=== PATIENT | female | born 1970 | race Caucasian/White ===

== ENCOUNTER 2022-04-19 23:02 | Inpatient (IN) | payer BC ==
[2022-04-19] MEDS ORDERED: CEFAZOLIN 2 GM VIAL ONE (23:28)
[2022-04-19 23:34] LABS: #Basophils 0.1 thou/uL (0.0-0.2); #Eosinphils 0.4 thou/uL (0.0-0.7); #Lymphocytes 3.8 thou/uL (1.20-3.40); #Monocytes 0.7 thou/uL (0.11-0.59); #Neutrophils 3.8 thou/uL (1.40-6.50); %Basophils 0.9 % (0.0-1.0); %Eosinophils 4.7 % (0.0-10.0); %Lymphocytes 43.8 % (21.0-51.0); %Monocytes 7.6 % (0.0-10.0); %Neutrophils 42.9 % (42.0-75.0); Hemoglobin 12.2 g/dL (12.0-16.0); Mean Corpuscular HGB CONC 33.3 g/dL (32.0-36.0); Mean Corpuscular Hemoglobin 33.2 pg (27.0-31.0); Mean Corpuscular Volume 99.9 fl (78.0-98.0); Mean Platelet Volume 6.8 fL (7.4-10.4); Platelet Count 327 10x3/uL (130-400); RBC Distribution Width 11.4 % (11.5-14.5); Red Blood Cell (RBC) Count 3.69 mill/uL (4.20-5.40); White Blood Cell (WBC) Count 8.8 10x3/uL (4.8-10.8)
[2022-04-19 23:56] LABS: ALT (SGPT) 13 U/L (8-55); AST (SGOT) 17 U/L (5-34); Albumin 4.1 g/dL (3.5-5.0); Alkaline Phosphatase 25 U/L (40-110); Anion Gap 15 mmol/L (10-20); BUN (Urea Nitrogen) 13 mg/dL (9.8-20.1); Bilirubin, Total 0.2 mg/dL (0.2-1.2); Calc. Creatinine Clearance 0 mL/min (70-130); Calcium 8.3 mg/dL (7.8-10.44); Carbon Dioxide 20 mmol/L (22-29); Chloride 108 mmol/L (98-107); Estimated GFR 105; Globulin 2.6 g/dL (2.4-3.5); Glucose 95 mg/dL (70-105); Magnesium 2.3 mg/dL (1.6-2.6); Potassium 3.7 mmol/L (3.5-5.1); Protein, Total 6.7 g/dL (6.0-8.3); Sodium 139 mmol/L (136-145)
[2022-04-20] MEDS ORDERED: Lidocaine 1% PF 5 ML VIAL ONE (00:26)
[2022-04-20] MEDS ORDERED: FENTANYL 50 MCG/ML 1 ML VIAL ONE ×2 (00:33→01:28)
[2022-04-20] MEDS ORDERED: Ondansetron PF 4 MG/2 ML Vial IVP PRN (00:37)
[2022-04-20] MEDS ORDERED: Morphine 4 MG/ML VIAL SLOW IVP PRN (00:37)
[2022-04-20] MEDS ORDERED: hydrALAZINE 20 MG/ML VIAL SLOW IVP PRN (00:37)
[2022-04-20] MEDS ORDERED: traMADol HCl 50 MG TAB PO PRN (00:37)
[2022-04-20] MEDS ORDERED: TETANUS, DIPHTHERIA TOX,ADULT (TDVAX) 0.5 ML VIAL IM ONE (00:37)
[2022-04-20] MEDS ORDERED: Rib Fracture Protocol IV SCH (00:45)
[2022-04-20 01:18] LABS: Acetaminophen Less than 10.0 mcg/mL (10.0-30.0); Alcohol 275 mg/dL (Less than 10); Salicylate Less than 8.0 mg/dL (15.0-30.0)
[2022-04-20] MEDS ORDERED: Boostrix 0.5 ML (Tdap) VIAL (>/=7 yrs of age) ONE (01:35)
[2022-04-20] MEDS ORDERED: Multivitamins, Adult 10 ML, Thiamine HCl 100 MG, Folic Acid 1 MG in Dextrose 5 %-0.45 %... IV SCH (02:00)
[2022-04-20 03:22] VITALS: BMI 20.9
[2022-04-20] MEDS: traMADol HCl 50 MG TAB PO PRN ×2 (04:20→21:35)
[2022-04-20 04:33] LABS: SARS-CoV-2 NAA Rapid Test Not Detected (NotDetected)
[2022-04-20 04:33] LABS: #Monocytes 0.4 thou/uL (0.11-0.59); #Neutrophils 6.5 thou/uL (1.40-6.50); %Basophils 0.2 % (0.0-1.0); %Eosinophils 0.5 % (0.0-10.0); %Lymphocytes 12.9 % (21.0-51.0); %Monocytes 4.5 % (0.0-10.0); %Neutrophils 81.9 % (42.0-75.0); Hemoglobin 11.2 g/dL (12.0-16.0); Mean Corpuscular HGB CONC 32.4 g/dL (32.0-36.0); Mean Corpuscular Hemoglobin 32.5 pg (27.0-31.0); Mean Platelet Volume 6.8 fL (7.4-10.4); Platelet Count 282 10x3/uL (130-400); RBC Distribution Width 11.4 % (11.5-14.5); Red Blood Cell (RBC) Count 3.45 mill/uL (4.20-5.40); White Blood Cell (WBC) Count 7.9 10x3/uL (4.8-10.8)
[2022-04-20 04:53] LABS: Phosphorus 2.5 mg/dL (2.3-4.7)
[2022-04-20 04:55] LABS: Anion Gap 13 mmol/L (10-20); BUN (Urea Nitrogen) 11 mg/dL (9.8-20.1); Calc. Creatinine Clearance 97 mL/min (70-130); Calcium 7.5 mg/dL (7.8-10.44); Carbon Dioxide 20 mmol/L (22-29); Chloride 108 mmol/L (98-107); Estimated GFR 108; Glucose 120 mg/dL (70-105); Magnesium 1.8 mg/dL (1.6-2.6); Potassium 3.7 mmol/L (3.5-5.1); Sodium 137 mmol/L (136-145)
[2022-04-20] MEDS: Acetaminophen 500 MG TAB PO SCH ×3 (05:49→18:27)
[2022-04-20] MEDS ORDERED: CEFAZOLIN 1 GM VIAL SLOW IVP SCH (06:00)
[2022-04-20] MEDS ORDERED: Ketorolac Tromethamine 30 MG/ML VIAL IVP SCH (06:00)
[2022-04-20] MEDS: CEFAZOLIN 2 GM in Sodium Chloride 0.9% 100 ML IVPB SCH ×2 (08:18→18:27)
[2022-04-20] MEDS ORDERED: FLU VACC QS2022-23(6MOS UP)/PF 60 MCG/0.5 ML SYRINGE IM ONE (09:00)
[2022-04-20] MEDS ORDERED: CEFAZOLIN 2 GM in Sodium Chloride 0.9% 100 ML IVPB SCH (09:00)
[2022-04-20] MEDS ORDERED: Morphine 4 MG/ML VIAL ONE (10:26)
[2022-04-20] MEDS ORDERED: Ondansetron PF 4 MG/2 ML Vial ONE ×2 (10:26→11:01)
[2022-04-20] MEDS ORDERED: fentaNYL PF 100 MCG/2 ML SYRINGE ONE (10:36)
[2022-04-20] MEDS ORDERED: Midazolam HCl 2 mg/2 ml Vial ONE (10:39)
[2022-04-20] MEDS ORDERED: Oxymetazoline HCl 0.05% (30 ML BOT) ONE (10:39)
[2022-04-20] MEDS ORDERED: Famotidine/PF 20 mg/2ml Vial ONE (10:39)
[2022-04-20] MEDS ORDERED: Dexamethasone 20 MG/5 ML VIAL ONE (11:01)
[2022-04-20] MEDS ORDERED: Rocuronium Bromide 10 MG/ML (10ML VIAL) ONE (11:01)
[2022-04-20] MEDS ORDERED: Ketorolac Tromethamine 30 MG/ML VIAL ONE (11:01)
[2022-04-20] MEDS ORDERED: NEOSTIGMINE 3 MG/3 ML SYR 3 MG/3 ML SYRINGE ONE (11:01)
[2022-04-20] MEDS ORDERED: PROPOFOL 200 MG/20 ML VIAL ONE (11:01)
[2022-04-20] MEDS ORDERED: Glycopyrrolate 0.2 MG/ML 5 ML SYRINGE ONE (11:01)
[2022-04-20] MEDS ORDERED: Bupivacaine HCl 0.5%/Epinephrine 1:200,000/PF 30 ml Vial ONE (11:29)
[2022-04-20 11:45] LABS: Amphetamine Not Detected (NotDetected); Barbiturates Screen Not Detected (NotDetected); Benzodiazepine Screen Not Detected (NotDetected); Cocaine Metabolite Screen Not Detected (NotDetected); Methadone Not Detected (NotDetected); Methamphetamine Not Detected (NotDetected); Opiate Screen Not Detected (NotDetected); Oxycodone Screen Not Detected (NotDetected); Phencyclidine (PCP) Not Detected (NotDetected); THC/Cannabinoid Screen Not Detected (NotDetected); Tricyclic Screen Not Detected (NotDetected)
[2022-04-20] MEDS ORDERED: Potassium Phosphate 15 MMOL in Sodium Chloride 0.9% 250 ML 250 ML IVPB SCH (12:00)
[2022-04-20] MEDS: Sodium Chloride 0.9% 1,000 ML IV SCH ×2 (15:18→15:19)
[2022-04-20] MEDS: Folic Acid 1 MG TAB PO SCH (15:20)
[2022-04-20] MEDS: Famotidine/PF 20 mg/2ml Vial SLOW IVP SCH ×2 (15:20→21:36)
[2022-04-20] MEDS: Thiamine 100 MG TAB PO SCH (15:21)
[2022-04-20] MEDS: Oxazepam 10 MG CAP PO SCH ×2 (15:22→21:41)
[2022-04-21] MEDS: CEFAZOLIN 2 GM in Sodium Chloride 0.9% 100 ML IVPB SCH (00:38)
[2022-04-21] MEDS: Acetaminophen 500 MG TAB PO SCH ×3 (00:43→12:12)
[2022-04-21] MEDS: Oxazepam 10 MG CAP PO SCH ×2 (05:25→15:13)
[2022-04-21] MEDS ORDERED: Multivitamin W/ Minerals 1 TAB PO SCH (09:00)
[2022-04-21] MEDS ORDERED: FLUoxetine HCl 20 MG CAP PO SCH (09:00)
[2022-04-21] MEDS: Famotidine/PF 20 mg/2ml Vial SLOW IVP SCH (09:09)
[2022-04-21] MEDS: Thiamine 100 MG TAB PO SCH (09:09)
[2022-04-21] MEDS: Folic Acid 1 MG TAB PO SCH (09:09)
[2022-04-21] MEDS ORDERED: Ibuprofen 200 MG TAB PO PRN (12:24)
[2022-04-21] MEDS ORDERED: Gabapentin 300 MG CAP PO SCH (15:00)
[2022-04-21 15:59] VITALS: BP 128/78; TEMP 98.6
[2022-04-21] MEDS: traMADol HCl 50 MG TAB PO PRN (16:08)
== END 2022-04-21 16:20 | disposition home or self-care (01) | DRG 512 ==
LOC: ERS 23:02 → SURG B 04-20 00:37
PROVIDERS: ADMIT Surgery; ATTEND Surgery
PROC: 0PSH04Z Reposition Right Radius with Internal Fixation Device, Open Approach (ICD-10-PCS; principal; 2022-04-20)
PROC: 0PBK0ZZ Excision of Right Ulna, Open Approach (ICD-10-PCS; 2022-04-20)
DX: S52.591B Other fractures of lower end of right radius, initial encounter for open fracture type I or II (principal); S52.691B Other fracture of lower end of right ulna, initial encounter for open fracture type I or II; Z20.822 Contact with and (suspected) exposure to COVID-19; Z23 Encounter for immunization; F10.129 Alcohol abuse with intoxication, unspecified; Y90.8 Blood alcohol level of 240 mg/100 ml or more; W17.89XA Other fall from one level to another, initial encounter; F32.A Depression, unspecified; Z79.899 Other long term (current) drug therapy
CPT/HCPCS: 25605; 36415; 70450; 72125; 80048; 80053; 80306; 80307; 82533; 83735; 84100; 85025; 90471; 90715; 96374; 96375; C1713; J1100; J1885; J2250; J2270; J2405; J2704; J3010; J3411; J3490; J7042; J7050; S0028; U0002